=== PATIENT | male | born 1965 | race Caucasian/White ===

== ENCOUNTER 2025-02-14 17:06 | Outpatient (REF) | payer OTHER, SELFPAY | END 2025-02-14 17:07 | disposition home or self-care (01) | LOC: LBN 17:06 | PROVIDERS: Visit Provider Registered Nurse Maternal Newborn | DX: H66.22 Chronic atticoantral suppurative otitis media, left ear (principal) | CPT/HCPCS: 87077; 87070; 87186; 87205 ==